=== PATIENT | female | born 1940 | race Caucasian/White ===

== ENCOUNTER 2019-10-27 18:01 | Emergency (ER) | payer OTHER, MEDICARE ==
[~2019-10-27] VITALS: Ht 160 cm; Wt 77.6 kg
[~2019-10-27 18:01] MED LIST: ACAI BERRY500 MG PO; ADULT LOW DOSE81 MG PO; AMLODIPINE BESYL5 MG; BACTRIM DS TAB1 EACH PO; BUPROPION; CALCIUM; CENTRUM COMPLE1 EACH PO; CIPROFLOXACIN500 M1 PO; CO Q-10100 MG PO; COLACE100 MG PO; COZAAR 25 MG TA25 M1; CYMBALTA30 MG; FISHOIL PO; FLAGYL500 MG PO; GABAPENTIN 100100 MG; GLUCOPHAGE500 MG PO; GLUMETZA500 PO; HCTZ; HYDROCODONE-AP1 EA10 PO; IRON159 MG PO; K-DUR 20 MEQ T20 MEQ PO; LASIX 40 MG TAB40 M2 PO; LEVAQUIN 750 M750 MG PO; LISINOPRIL20 MG; LISINOPRIL20 MG PO; LISINOPRIL40 MG PO; LOPRESSOR25 PO; MECLIZINE 25 MG25 M1 PO; MELATONIN1 MG; METFORMIN HCL500 MG; MINIPRIN81 MG PO; MIRALAX255 GM PO; MULTIVITAMINS; MULTIVITAMINS PO; NORCO 5-325 TA1 EACH PO; OMEGA-31000 MG PO; PERCOCET 5-3251 EACH PO; PREVACID 24HR15 MG PO; PREVACID 30MG C30 M1; PREVACID30 M2 PO; PYRIDIUM200 MG PO; SIMVASTATIN20 MG PO; VESICARE10 M1 PO; VICODIN; VITAMIN D1000 UNI1 PO; VITAMIN D35000 UNIT; ZOFRAN ODT4 MG PO; ZOFRAN4 MG PO
[2019-10-27] MEDS ORDERED: OLMESARTAN MEDOX5 MG PO (18:08)
[2019-10-27] MEDS ORDERED: OXYBUTYNIN 5 MG5 M2 PO (18:09)
[2019-10-27 20:01] VITALS: BP 142/64
== END 2019-10-27 20:04 | disposition home or self-care (01) ==
LOC: M.ERS 18:01
DX: S40.811A Abrasion of right upper arm, initial encounter (principal); E11.9 Type 2 diabetes mellitus without complications; R51 Headache; Z88.0 Allergy status to penicillin; Z90.89 Acquired absence of other organs; Z87.442 Personal history of urinary calculi; Z88.7 Allergy status to serum and vaccine; W18.09XA Striking against other object with subsequent fall, initial encounter; Y93.89 Activity, other specified; Y92.009 Unspecified place in unspecified non-institutional (private) residence as the place of occurrence of the external cause; Y99.8 Other external cause status